=== PATIENT | female | born 1985 | race Caucasian/White ===

== ENCOUNTER 2018-04-03 11:28 | Emergency (ER) | payer BC, OTHER ==
[2018-04-03 11:33] VITALS: RESP 18; TEMP 97.9
--- NOTE | 2018-04-03 12:57 | ED ---
General Adult HPI - General Chief complaint: Vaginal Bleeding Stated complaint: POSS MISCARRAGE Time Seen by Provider: 04/03/18 12:41 Source: patient, RN notes reviewed Mode of arrival: ambulatory Limitations: no limitations - History of Present Illness Initial comments: Patient 32-year-old female G1, P0, presenting to the emergency room today with a chief complaint of vaginal bleeding that began approximately an hour ago. She does admit that she is approximately weeks by her last menstrual cycle. Patient states that she has had some increased lower abdominal cramping. She admits to some bleeding that started just an hour ago while at work. Patient denies any other complaints or symptoms currently. Patient denies any recent fever, chills, shortness of breath, chest pain, back pain, nausea or vomiting, numbness or tingling, dysuria or hematuria, constipation or diarrhea, headaches or visual changes, or any other complaints. - Related Data Home Medications Medication Instructions Recorded Confirmed Levothyroxine Sodium [Levoxyl] 175 mcg PO DAILY 11/26/15 04/03/18 Pnv,Calcium 72/Iron/Folic Acid 1 tab PO W/LUNCH 04/03/18 04/03/18 [ Plus Tablet] Allergies Allergy/AdvReac Type Severity Reaction Status Date / Time coconut Allergy Rash/Hives Verified 04/03/18 13:11 Review of Systems ROS Statement: Those systems with pertinent positive or pertinent negative responses have been documented in the HPI. ROS Other: All systems not noted in ROS Statement are negative. Past Medical History Past Medical History: Thyroid Disorder Additional Past Medical History / Comment(s): migraines History of Any Multi-Drug Resistant Organisms: None Reported Past Surgical History: Adenoidectomy, Tonsillectomy Past Psychological History: No Psychological Hx Reported Smoking Status: Never smoker Past Alcohol Use History: None Reported Past Drug Use History: Marijuana General Exam - General Exam Comments Initial Comments: General: The patient is awake and alert, in no distress, and does not appear acutely ill. Eye: Pupils are equal, round and reactive to light, extra-ocular movements are intact. No nystagmus. There is normal conjunctiva bilaterally. No signs of icterus. Ears, nose, mouth and throat: There are moist mucous membranes and no oral lesions. Neck: The neck is supple, there is no tenderness or JVD. Cardiovascular: There is a regular rate and rhythm. No murmur, rub or gallop is appreciated. Respiratory: Lungs are clear to auscultation, respirations are non-labored, breath sounds are equal. No wheezes, stridor, rales, or rhonchi. Gastrointestinal: Abdomen soft on palpation. Mild tenderness midline. No rebound tenderness. No guarding. Musculoskeletal: Normal ROM, no tenderness. Strength 5/5. Sensation intact. Pulses equal bilaterally 2+. Neurological: A&O x 3. CN II-XII intact, There are no obvious motor or sensory deficits. Coordination appears grossly intact. Speech is normal. Skin: Skin is warm and dry and no rashes or lesions are noted. Psychiatric: Cooperative, appropriate mood & affect, normal judgment. Limitations: no limitations Course Vital Signs 04/03/18 04/03/18 11:31 15:03 Temperature 97.9 F Pulse Rate 86 73 Respiratory 18 18 Rate Blood Pressure 160/92 104/51 O2 Sat by Pulse 100 99 Oximetry Medical Decision Making - Medical Decision Making Patient reexamined at this time shows no signs of distress. She is resting couple. Her abdomen soft on palpation. She does not that the bleeding has decreased. Patient also shows possible early gestational sac versus ectopic . Patient vitals are stable. Patient's blood work has been reviewed. Is Rh+. Beta hCG is 3.4. These results were discussed in detail with the patient. I was discussed about possibility of a miscarriage at this time. Advised follow-up the SOLE CONFORMING MACHINE OPERATOR over the next 2 days. Advised to have repeat beta hCG in 2 days. Advised return if symptoms increase worsen or for any other concerns. - Lab Data Result diagrams: 04/03/18 13:07 Lab Results 04/03/18 04/03/18 04/03/18 Range/Units 13:07 13:07 13:07 WBC 8.9 (3.8-10.6) k/uL RBC 4.47 (3.80-5.40) m/uL Hgb 13.1 (11.4-16.0) gm/dL Hct 39.1 (34.0-46.0) % MCV 87.4 (80.0-100.0) fL MCH 29.3 (25.0-35.0) pg MCHC 33.5 (31.0-37.0) g/dL RDW 13.7 (11.5-15.5) % Plt Count 261 (150-450) k/uL Neutrophils % 67 % Lymphocytes % 21 % Monocytes % 8 % Eosinophils % 1 % Basophils % 0 % Neutrophils # 5.9 (1.3-7.7) k/uL Lymphocytes # 1.9 (1.0-4.8) k/uL Monocytes # 0.7 (0-1.0) k/uL Eosinophils # 0.1 (0-0.7) k/uL Basophils # 0.0 (0-0.2) k/uL HCG, Quant 3.4 mIU/mL Urine Color Urine Appearance (Clear) Urine pH (5.0-8.0) Ur Specific [place] (1.001-1.035) Urine Protein (Negative) Urine Glucose (UA) (Negative) Urine Ketones (Negative) Urine Blood (Negative) Urine Nitrite (Negative) Urine Bilirubin (Negative) Urine Urobilinogen (<2.0) mg/dL Ur Leukocyte Esterase (Negative) Urine RBC (0-5) /hpf Ur Squamous Epith Cells (0-4) /hpf Urine Bacteria (None) /hpf Urine Mucus (None) /hpf Blood Type O Positive Blood Type Recheck No 04/03/18 Range/Units 13:07 WBC (3.8-10.6) k/uL RBC (3.80-5.40) m/uL Hgb (11.4-16.0) gm/dL Hct (34.0-46.0) % MCV (80.0-100.0) fL MCH (25.0-35.0) pg MCHC (31.0-37.0) g/dL RDW (11.5-15.5) % Plt Count (150-450) k/uL Neutrophils % % Lymphocytes % % Monocytes % % Eosinophils % % Basophils % % Neutrophils # (1.3-7.7) k/uL Lymphocytes # (1.0-4.8) k/uL Monocytes # (0-1.0) k/uL Eosinophils # (0-0.7) k/uL Basophils # (0-0.2) k/uL HCG, Quant mIU/mL Urine Color Yellow Urine Appearance Cloudy H (Clear) Urine pH 5.5 (5.0-8.0) Ur Specific [place] 1.018 (1.001-1.035) Urine Protein 1+ H (Negative) Urine Glucose (UA) Negative (Negative) Urine Ketones Negative (Negative) Urine Blood Large H (Negative) Urine Nitrite Negative (Negative) Urine Bilirubin Negative (Negative) Urine Urobilinogen <2.0 (<2.0) mg/dL Ur Leukocyte Esterase Trace H (Negative) Urine RBC >182 H (0-5) /hpf Ur Squamous Epith Cells 2 (0-4) /hpf Urine Bacteria Rare H (None) /hpf Urine Mucus Rare H (None) /hpf Blood Type Blood Type Recheck Disposition Clinical Impression: Threatened Disposition: HOME SELF-CARE Condition: Good Instructions: Threatened Miscarriage (ED) Additional Instructions: Please have repeat blood draw in 2 days. Please call the SOLE CONFORMING MACHINE OPERATOR tomorrow as discussed. Please return to emergency room if the symptoms increase or worsen or for any other concerns. Is patient prescribed a controlled substance at d/c from ED?: No Referrals: Monty Sanchez MD [Primary Care Provider] - 1-2 days Samira Sauceda MD [REFERRING] - 1-2 days Time of Disposition: 15:34
[2018-04-03 13:36] LABS: Basophils % (A) 0 %; Eosinophils # (A) 0.1 k/uL (0-0.7); Eosinophils % (A) 1 %; HCT 39.1 % (34.0-46.0); HGB 13.1 gm/dL (11.4-16.0); Lymphocytes # (A) 1.9 k/uL (1.0-4.8); Lymphocytes % (A) 21 %; MCH 29.3 pg (25.0-35.0); MCHC 33.5 g/dL (31.0-37.0); MCV 87.4 fL (80.0-100.0); Mean Platelet Volume 6.8; Monocytes # (A) 0.7 k/uL (0-1.0); Monocytes % (A) 8 %; Neutrophils # (A) 5.9 k/uL (1.3-7.7); Neutrophils % (A) 67 %; Platelet Count 261 k/uL (150-450); RBC 4.47 m/uL (3.80-5.40); RDW 13.7 % (11.5-15.5); WBC 8.9 k/uL (3.8-10.6)
[2018-04-03 13:49] LABS: Appearance,Urine Cloudy (Clear); Bacteria,Urine Rare /hpf; Bilirubin,Urine Negative (Negative); Blood,Urine Large (Negative); Color,Urine Yellow; Glucose,Urine (UA) Negative (Negative); Ketones,Urine Negative (Negative); Leukocyte Esterase,Urine Trace (Negative); Mucus,Urine Rare /hpf; Nitrite,Urine Negative (Negative); PH, Urine 5.5 (5.0-8.0); Protein,Urine 1+ (Negative); RBC,Urine >182 /hpf (0-5); Specific Gravity,Urine 1.018 (1.001-1.035); Squamous Epithelial Cell,Urine 2 /hpf (0-4); Urobilinogen,Urine <2.0 mg/dL (<2.0)
[2018-04-03 15:04] VITALS: BP 104/51; PULSE 73
--- NOTE | 2018-04-03 15:07 | US ---
EXAMINATION TYPE: Transabdominal DATE OF EXAM: 01/30/18 COMPARISON: NONE CLINICAL HISTORY: Pain. Vaginal bleeding today with pelvic cramping; patient stated confirm ed by home test and physician office testing EXAM PERFORMED: Transvaginal (TV) to better see possible IUP and Transabdominal (TA) as required EXAM MEASUREMENTS: GESTATIONAL AGE / DATING Physician Established: Not yet established Dates by LMP: (4 weeks/1 day) EDC: 12/10/2018 Dates by First Scan: No previous; this is first scan Dates by Current Scan for: No IUP seen at this time MATERNAL ANATOMY Uterus: 6.8 x 5.2 x 3.8cm Right Ovary: 3.7 x 3.2 x 2.6cm Left Ovary: 3.6 x 2.3 x 2.6cm Post CDS / Adnexa: wnl Presence of free fluid: small amount of posterior CDS free fluid= 2.9 x 0.6 x 0.6cm Presence of corpus luteal cyst: may be in right ovary as complex cyst with peripheral ring of color f low = 2.5 x 1.5 x 2.4cm vs. hemorrhagic ovarian cyst GESTATION / SURVEY MSD: 0.54cm and may be gestational sac with internal echoes and noted mid endometrial cavity and is t oo early for machine calculation Date of LMP: 03/05/2018 Beta HcG (if available): 3.4 Fluid-filled sac is seen mid endometrial cavity vs. round complex endometrial mass. IMPRESSION: 1. Nonspecific complex collection in the endometrium. This is too small to characterize.. This could represent a small amount of blood product. If the patient is beta hCG positive then consider normal p regnancy too early to detect, missed , or ectopic . Complex cyst within the right ov sharifa as discussed above. Correlate clinically. 2. Small amount of free fluid in the pelvis.
== END 2018-04-03 16:15 | disposition home or self-care (01) ==
LOC: EC 11:28
DX: O20.0 Threatened abortion (principal); O99.281 Endocrine, nutritional and metabolic diseases complicating pregnancy, first trimester; E07.9 Disorder of thyroid, unspecified; Z3A.01 Less than 8 weeks gestation of pregnancy; Z91.018 Allergy to other foods; Z79.899 Other long term (current) drug therapy
CPT/HCPCS: 36415; 76801; 76817; 81001; 84702; 85025; 86900; 86901; 87086; 99284

== ENCOUNTER → 2018-04-05 | Outpatient (CLI) | payer BC | END | disposition home or self-care (01) | LOC: LABWHC1 16:14 | PROVIDERS: ATTEND Physician Assistant | DX: O20.0 Threatened abortion (principal) | CPT/HCPCS: 36415; 84702 ==